=== PATIENT | male | born 1965 | race Caucasian/White ===

== ENCOUNTER 2017-05-24 18:03 | Emergency (ER) | payer SELFPAY ==
[~2017-05-24] VITALS: Ht 180.3 cm; Wt 90.0 kg
[2017-05-24 18:26] VITALS: BP 143/103
== END 2017-05-24 18:25 | disposition short-term general hospital (02) ==
LOC: EMS 18:09
DX: S09.90XA Unspecified injury of head, initial encounter (principal); W13.2XXA Fall from, out of or through roof, initial encounter; Y93.89 Activity, other specified; Y92.89 Other specified places as the place of occurrence of the external cause; Y99.8 Other external cause status
CPT/HCPCS: 99285